=== PATIENT | female | born 1990 | race African-American/Black ===

== ENCOUNTER 2016-06-25 13:39 | Emergency (ER) ==
[2016-06-25 14:15] VITALS: BP 141/085
--- NOTE | 2016-06-25 14:47 | PROVIDER DOCUMENTATION ---
HPI-General Adult - General Chief Complaint: Cold Symptoms Stated Complaint: FLU LIKE SX Time Seen by Provider: 06/25/16 14:31 Source: patient Allergies/Adverse Reactions: Patient Allergies Allergy/AdvReac Type Severity Reaction Status Date / Time No Known Allergies Allergy Verified 06/25/16 14:16 Home Medications: Home Medication List Medication Instructions Recorded Confirmed Last Taken Type Acetaminophen with Codeine 1 each PO Q8H PRN PRN #10 tablet 06/25/16 Unknown Rx [Tylenol with Codeine #3] Azithromycin [Zithromax Z-Lamont] 250 mg PO DIRECTED #1 pkg 06/25/16 Unknown Rx Methylprednisolone [Medrol Dosepak] 4 mg PO DIRECTED #1 package 06/25/16 Unknown Rx - History of Present Illness -Gen Adult Nature of Presenting Problems: patient is a 26 y/o F that presents to the ER with one week of bodyaches, cough/ congestion, chills, n/v, bilateral earache, and sore throat. attempted otc meds with no relief. Location of Pain/Injury: reports: generalized Quality of Pain: reports: aching Severity: reports: mild, moderate Onset/Duration: reports: gradual, 1 week ago Timing: reports: still present, constant Context/Activities at Onset: reports: none Modifying Factors: improves with: nothing Associated Symptoms: reports: cough, EENT symptoms, fever/chills, headaches, muscle aches, sinus congestion/drainage. denies: back/neck pain, diarrhea, dizziness, genitourinary problems, nausea, rash, shortness of breath, vomiting Similar Symptoms Previously?: No Recently seen or treated by another doctor?: No Review of Systems - Adult - REVIEW OF SYSTEMS - ADULT Constitutional: reports: chills. denies: fever Eyes: reports: discharge. denies: decreased vision, blurred vision, double vision, eye pain Ears, Nose, Mouth & Throat: reports: ear pain, sinus problem, throat pain Cardiovascular: denies: chest pain, palpitations, syncope Respiratory: reports: cough. denies: shortness of breath, wheezing Gastrointestinal: reports: nausea, vomiting. denies: abdominal pain, diarrhea Genitourinary: reports: no symptoms reported Musculoskeletal: reports: no symptoms reported Integumentary: reports: no symptoms reported Neurological: reports: headache/migraines. denies: dizziness/vertigo Psychiatric: reports: no symptoms reported Endocrine: reports: no symptoms reported Hematologic/Lymphatic: reports: no symptoms reported Allergic/Immunologic: reports: no symptoms reported All Other Systems: Reviewed and Negative Past History - Adult - PAST MEDICAL HISTORY-ADULT Review of Records: reports: Old Records Reviewed, Nursing Assessment Review, Medications Reviewed Major Childhood Illnesses: reports: denies history Cardiovascular: reports: denies history - PRIOR SURGERIES/PROCEDURES Surgical/Procedure History: reports: other (vaginal delivery; episiotomy) - IMMUNIZATION STATUS Childhood Immunizations: UTD, See Nurse Assessment Flu Vaccine: NUTD - FAMILY HISTORY Family History: reviewed, not pertinent - SOCIAL HISTORY Smoking: cigarettes, less than 1 pack/day Living Situation: family Physical Exam-General - PHYSICAL EXAM-ADULT Initial Vital Signs Reviewed: Yes - CONSTITUTIONAL General Appearance: alert, no apparent distress - EYES Eyes: PERRL/EOMI, pink conjunctivae - HEAD, EARS, NOSE, MOUTH & THROAT HENMT: normocephalic/atraumatic, moist mucous membranes, pharyngeal erythema, TM abnormal. negative: angioedema - NECK Neck: full range of motion, normal inspection. negative: lymphadenopathy - RESPIRATORY Respiratory: lungs clear, normal breath sounds, no respiratory distress, no accessory muscle use - CARDIOVASCULAR Cardiovascular: regular rate, rhythm, no edema, no murmur - GASTROINTESTINAL (ABDOMEN) Abdominal Exam: normal bowel sounds, non tender, soft, no organomegaly, no pulsatile mass - MUSCULOSKELETAL Extremity: normal range of motion, normal inspection - SKIN Integumentary: normal color, warm/dry - NEUROLOGIC Neurologic: grossly normal, no motor/sensory deficits - PSYCHIATRIC Psych/Mental Status: normal mood/affect, normal thought content, normal thought process, oriented x 3 Progress - PLAN OF CARE/RESULTS Progress/Plan/Lab Results: Vital Signs Temp Pulse Resp BP Pulse Ox 06/25/16 14:12 99.0 F 79 20 141/085 97 No Known Allergies Allergy (Verified 06/25/16 14:16) Acetaminophen with Codeine [Tylenol with Codeine #3] 1 each PO Q8H PRN PRN #10 tablet 06/25/16 Azithromycin [Zithromax Z-Lamont] 250 mg PO DIRECTED #1 pkg 06/25/16 Methylprednisolone [Medrol Dosepak] 4 mg PO DIRECTED #1 package 06/25/16 Laboratory 06/25/16 14:18 Influenza A (Rapid) NEGATIVE Influenza B (Rapid) NEGATIVE Orders Category Date Time Status INFLUENZA SCREEN PL Stat Lab 06/25/16 14:18 Completed Departure - Departure Time of Disposition Order: 15:01 DIAGNOSIS: Upper respiratory infection Qualifiers: URI type: acute nasopharyngitis (common cold) Qualified Code(s): J00 - Acute nasopharyngitis [common cold] Disposition: HOME 01 Certified Medical Emergency: Emergent Condition: Stable Additional Instructions: ED Follow Up Instructions: You have been treated by a care provider in the Emergency Department. These instructions are being provided to you so you can have an understanding of how to care for yourself upon discharge. Upon discharge from the Emergency Department, you are responsible for making arrangements for follow-up care by a physician of your choice. Take all prescribed medications as directed. Return to the Emergency Department immediately for any new or worsening symptoms. You may call the Physician Referral phone number at [phone] to obtain a list of Physicians who are taking new patients. Prescriptions: Methylprednisolone [Medrol Dosepak] 4 mg PO DIRECTED #1 package Acetaminophen with Codeine [Tylenol with Codeine #3] 1 each PO Q8H PRN PRN #10 tablet PRN Reason: Pain Azithromycin [Zithromax Z-Lamont] 250 mg PO DIRECTED #1 pkg Referrals: None,PCP [Primary Care Provider] - Juan Carlos Guido MD [STAFF PHYSICIAN] - Call for Appoint. -1 week Instructions: Upper Respiratory Infection, Adult, [id number] Attestation - Scribe Verification/Attestation Scribe:: Josesito Yanes Acting as Scribe for:: Esperanza Jean Baptiste Scribe documention review:: This chart was documented by a scribe and accurately reflects the service the provider performed and the decisions made by the provider. Physician Attestation - Physician Attestation I, the provider, attest to the following statement:: Esperanza Jean Baptiste Physician documentation Attestation:: This documentation recorded by the scribe accurately reflects the service I personally performed and the decisions made by me.
== END 2016-06-25 15:12 | disposition home or self-care (01) ==
LOC: P.ED 13:39
DX: J00 Acute nasopharyngitis [common cold] (principal); M79.1 Myalgia; R05 Cough; R09.81 Nasal congestion; R11.2 Nausea with vomiting, unspecified; H92.03 Otalgia, bilateral; J02.9 Acute pharyngitis, unspecified; R50.9 Fever, unspecified; R51 Headache; F17.210 Nicotine dependence, cigarettes, uncomplicated
CPT/HCPCS: 87804; 99283